=== PATIENT | female | born 2005 | race Two or more races ===

== ENCOUNTER 2024-01-20 17:33 | Emergency (ER) | payer SELFPAY ==
[2024-01-20] MEDS: Sodium Chloride 0.9% 10 ML Syringe FLUSH PRN (18:08)
[2024-01-20] MEDS: Sodium Chloride 0.9% 2.5 ML Syringe FLUSH PRN (18:08)
[2024-01-20] MEDS: Ketorolac 30 MG/ML SDV IVPUSH ONE (18:08)
[2024-01-20] MEDS: Sodium Chloride 0.9% 1,000 ML IV ONE (18:08)
[2024-01-20 18:22] LABS: BASOPHILS ABSOLUTE AUTO 0.05 K/uL (0.00-0.20); BASOPHILS PERCENT AUTO 0.3 % (0.0-1.0); EOSINOPHILS ABSOLUTE AUTO 0.41 K/uL (0.00-0.45); EOSINOPHILS PERCENT AUTO 2.6 % (0.0-6.0); HEMATOCRIT 38.2 % (37.0-47.0); HEMOGLOBIN 12.7 g/dL (12.0-16.0); IMMATURE GRAN ABSOLUTE AUTO 0.05 K/uL (0.00-0.05); IMMATURE GRAN PERCENT AUTO 0.3 % (0.0-0.4); LYMPHOCYTES PERCENT AUTO 16.9 % (24.0-44.0); MEAN CORPUSCULAR HEMOGLOBIN 26.7 pg (28.0-32.0); MEAN CORPUSCULAR HGB CONC 33.2 g/dL (32.0-36.0); MEAN CORPUSCULAR VOLUME 80.4 fL (83.0-99.0); MEAN PLATELET VOLUME 9.4 fL (9.4-12.3); MONOCYTES ABSOLUTE AUTO 1.21 K/uL (0.00-0.80); MONOCYTES PERCENT AUTO 7.6 % (0.0-8.0); NEUTROPHILS ABSOLUTE AUTO 11.52 K/uL (1.80-7.70); NEUTROPHILS PERCENT AUTO 72.3 % (41.0-71.0); PLATELET COUNT,PLT 457 K/uL (150-400); RED BLOOD CELL COUNT 4.75 M/uL (4.10-5.30); WHITE BLOOD CELL COUNT,WBC 15.94 K/uL (3.9-11.3)
[2024-01-20 18:32] LABS: A/G RATIO 0.9 (0.9-1.6); ALBUMIN 4.5 g/dL (3.4-5.0); BILIRUBIN TOTAL 0.2 mg/dL (0.2-1.0); CALCIUM 9.6 mg/dL (8.5-10.1); CARBON DIOXIDE,CO2 24.1 mmol/L (21.0-32.0); CREATININE 0.7 mg/dL (0.6-1.0); EST CRCL DRUG DOSING (CG) 112.12 mL/min; POTASSIUM,K 3.6 mmol/L (3.5-5.1); PROTEIN TOTAL,TP 9.3 g/dL (6.4-8.2)
[2024-01-20] MEDS: Iopamidol 755 MG/ML 500 ML Multipack Bottle IVPUSH STA (19:44)
[2024-01-20 19:59] LABS: APPEARANCE,URINE CLEAR; BILIRUBIN,URINE NEGATIVE (NEGATIVE); COLOR,URINE YELLOW; GLUCOSE,URINE NEGATIVE (NEGATIVE); KETONES,URINE TRACE mg/dL (NEGATIVE); LEUKOCYTE ESTERASE,URINE NEGATIVE (NEGATIVE); NITRITE,URINE NEGATIVE (NEGATIVE); OCCULT BLOOD,URINE MODERATE (NEGATIVE); PH,URINE 6.5 (5.0-8.0); PROTEIN,URINE NEGATIVE (NEGATIVE); UROBILINOGEN,URINE 0.2 EU/dL (<2.0)
[2024-01-20 20:09] LABS: BACTERIA,URINE FEW (NEGATIVE); EPITHELIAL CELLS,URINE FEW (NONE-FEW); MUCUS,URINE LIGHT (NONE-MOD)
== END 2024-01-20 23:44 | disposition home or self-care (01) ==
LOC: MW.ED 17:33
DX: N83.201 Unspecified ovarian cyst, right side (principal); Z75.8 Other problems related to medical facilities and other health care
CPT/HCPCS: 36415; 74177; 76857; 80053; 81001; 83690; 84703; 85025; 96361; 96374; 99284; J1885; J3490; J7030; Q9967

== ENCOUNTER 2024-01-21 08:55 | Emergency (ER) | payer SELFPAY ==
[2024-01-21] MEDS: Acetaminophen/HYDROcodone 325-5 MG Tab PO ONE (10:03)
[2024-01-21] MEDS: Ketorolac 30 MG/ML SDV IM ONE (11:42)
[2024-01-21] MEDS: Ketorolac 30 MG/ML SDV IVPUSH STA (11:44)
[2024-01-21] MEDS ORDERED: Naloxone 0.4 MG/ML SDV IVPUSH PRN (12:36)
[2024-01-21] MEDS: Morphine 4 MG/ML Syringe IVPUSH PRN (12:56)
[2024-01-21] MEDS: Ondansetron 4 MG/2 ML SDV IVPUSH ONE (13:03)
[2024-01-21] MEDS: Sodium Chloride 0.9% 1,000 ML IV ONE (13:03)
== END 2024-01-21 14:57 | disposition home or self-care (01) ==
LOC: MW.ED 08:55
DX: N83.9 Noninflammatory disorder of ovary, fallopian tube and broad ligament, unspecified (principal); Z75.8 Other problems related to medical facilities and other health care; Z79.899 Other long term (current) drug therapy
CPT/HCPCS: 76857; 96361; 96374; 96375; 99284; A9270; J1885; J2270; J2405; J7030

== ENCOUNTER 2024-07-23 07:40 | Day surgery (SDC) | payer OTHER ==
[2024-07-23] MEDS ORDERED: Sodium Chloride 0.9% 10 ML Syringe FLUSH PRN (08:04)
[2024-07-23] MEDS ORDERED: Sodium Chloride 0.9% 2.5 ML Syringe FLUSH PRN (08:04)
[2024-07-23 08:20] LABS: BASOPHILS ABSOLUTE AUTO 0.05 K/uL (0.00-0.20); BASOPHILS PERCENT AUTO 0.4 % (0.0-1.0); EOSINOPHILS ABSOLUTE AUTO 0.46 K/uL (0.00-0.45); EOSINOPHILS PERCENT AUTO 3.9 % (0.0-6.0); HEMATOCRIT 30.3 % (37.0-47.0); HEMOGLOBIN 10.1 g/dL (12.0-16.0); IMMATURE GRAN ABSOLUTE AUTO 0.03 K/uL (0.00-0.05); IMMATURE GRAN PERCENT AUTO 0.3 % (0.0-0.4); LYMPHOCYTES ABSOLUTE AUTO 1.79 K/uL (1.00-4.80); LYMPHOCYTES PERCENT AUTO 15.3 % (24.0-44.0); MEAN CORPUSCULAR HEMOGLOBIN 26.9 pg (28.0-32.0); MEAN CORPUSCULAR HGB CONC 33.3 g/dL (32.0-36.0); MEAN CORPUSCULAR VOLUME 80.8 fL (83.0-99.0); MEAN PLATELET VOLUME 9.1 fL (9.4-12.3); MONOCYTES ABSOLUTE AUTO 1.32 K/uL (0.00-0.80); MONOCYTES PERCENT AUTO 11.3 % (0.0-8.0); NEUTROPHILS ABSOLUTE AUTO 8.02 K/uL (1.80-7.70); NEUTROPHILS PERCENT AUTO 68.8 % (41.0-71.0); PLATELET COUNT,PLT 454 K/uL (150-400); RED BLOOD CELL COUNT 3.75 M/uL (4.10-5.30); WHITE BLOOD CELL COUNT,WBC 11.67 K/uL (3.9-11.3)
[2024-07-23 08:33] LABS: APPEARANCE,URINE CLEAR; BILIRUBIN,URINE NEGATIVE (NEGATIVE); COLOR,URINE YELLOW; GLUCOSE,URINE NEGATIVE (NEGATIVE); KETONES,URINE NEGATIVE (NEGATIVE); LEUKOCYTE ESTERASE,URINE NEGATIVE (NEGATIVE); NITRITE,URINE NEGATIVE (NEGATIVE); OCCULT BLOOD,URINE MODERATE (NEGATIVE); PROTEIN,URINE NEGATIVE (NEGATIVE); UROBILINOGEN,URINE 0.2 EU/dL (<2.0)
[2024-07-23 08:40] LABS: ALBUMIN 3.8 g/dL (3.4-5.0); BILIRUBIN TOTAL 0.2 mg/dL (0.2-1.0); CALCIUM 8.7 mg/dL (8.5-10.1); CARBON DIOXIDE,CO2 24.3 mmol/L (21.0-32.0); CREATININE 0.7 mg/dL (0.6-1.0); EST CRCL DRUG DOSING (CG) 100.55 mL/min; POTASSIUM,K 3.9 mmol/L (3.5-5.1); PROTEIN TOTAL,TP 7.5 g/dL (6.4-8.2)
[2024-07-23] MEDS: Ketorolac 30 MG/ML SDV IVPUSH ONE ×2 (09:05→16:03)
[2024-07-23 09:57] LABS: BACTERIA,URINE FEW (NEGATIVE); EPITHELIAL CELLS,URINE MODERATE (NONE-FEW); MUCUS,URINE LIGHT (NONE-MOD)
[2024-07-23] MEDS: Iopamidol 755 MG/ML 500 ML Multipack Bottle IVPUSH STA (10:18)
[2024-07-23] MEDS ORDERED: Naloxone 0.4 MG/ML SDV IVPUSH PRN (11:38)
[2024-07-23] MEDS: Morphine 2 MG/ML SYRINGE IVPUSH ONE ×2 (11:47→13:15)
[2024-07-23] MEDS: Ondansetron 4 MG/2 ML SDV IVPUSH ONE ×2 (13:15)
[2024-07-23] MEDS: Morphine 4 MG/ML Syringe IVPUSH ONE (15:16)
[2024-07-23] MEDS ORDERED: Lidocaine 2% 5 ML SDV ONE (16:45)
[2024-07-23] MEDS ORDERED: fentaNYL 100 MCG/2 ML SDV ONE ×2 (16:45→18:55)
[2024-07-23] MEDS ORDERED: Rocuronium Bromide 50 MG/5 ML Syringe ONE (16:46)
[2024-07-23] MEDS ORDERED: Propofol 200 MG/20 ML SDV ONE (16:46)
[2024-07-23] MEDS ORDERED: Midazolam 1 MG/ML 2 ML SDV ONE (16:46)
[2024-07-23] MEDS ORDERED: Ropivacaine 0.5% 5 MG/ML 30 ML SDV ONE (16:53)
[2024-07-23] MEDS ORDERED: Bupivacaine 0.25% 30 ML SDV ONE ×2 (16:53→16:58)
[2024-07-23] MEDS ORDERED: Phenylephrine HCl In 0.9% NaCl 1 MG/10 ML Syringe ONE (17:43)
[2024-07-23] MEDS ORDERED: Sugammadex Sodium 200 MG/2 ML VIAL IV ONE (17:52)
[2024-07-23] MEDS ORDERED: Ketorolac 30 MG/ML SDV ONE (17:52)
[2024-07-23] MEDS ORDERED: Dexamethasone 4 MG/ML 5 ML MDV ONE (17:52)
[2024-07-23] MEDS ORDERED: Ondansetron 4 MG/2 ML SDV ONE (17:52)
[2024-07-23] MEDS ORDERED: Water For Injection, Sterile 20 ML ONE (18:03)
[2024-07-23] MEDS ORDERED: dexmedeTOMIDine HCl 200 MCG/2 ML SDV ONE (18:03)
[2024-07-23] MEDS ORDERED: Azithromycin 500 MG Vial ONE (18:36)
== END 2024-07-23 23:48 | disposition home or self-care (01) ==
LOC: MW.ED 07:40 → MERGE 16:30 → MW.MS 16:30 → MW.SDS 16:30 → MW.ED 17:14 → MW.SDS 23:48
PROVIDERS: ATTEND Obstetrics & Gynecology
DX: D27.0 Benign neoplasm of right ovary (principal); N70.91 Salpingitis, unspecified
CPT/HCPCS: 36415; 58661; 58662; 64488; 74177; 76856; 80053; 81001; 81025; 83690; 85025; 96374; 96375; 96376; 99285; C1729; J0131; J0456; J0665; J1100; J1885; J2250; J2270; J2371; J2405; J2704; J2795; J3010; J3490; Q9967; 00840

== ENCOUNTER 2024-07-23 08:07 | Emergency (ER) | payer OTHER | END 2024-07-23 11:00 | disposition left against medical advice (07) | LOC: MW.ED 08:07 | DX: Z53.21 Procedure and treatment not carried out due to patient leaving prior to being seen by health care provider (principal) ==